=== PATIENT | female | born 1975 | race Caucasian/White ===

== ENCOUNTER 2019-11-13 00:25 | Emergency (ER) | payer OTHER, SELFPAY ==
[2019-11-13 00:28] VITALS: BP 120/87; PULSE 108; RESP 18; TEMP 37.2; O2SAT 100; BMI 22.5
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
[2019-11-13] MEDS: Diphth,Pertuss(Acell),Tet Vac 0.5 ML Vial IM (02:51)
[2019-11-13 03:10] VITALS: BP 118/76; PULSE 90; RESP 16; O2SAT 99
== END 2019-11-13 03:13 | disposition home or self-care (01) ==
PROVIDERS: Emergency Provider Emergency Medicine; PCP Nurse Practitioner Family
DX: S06.0X0A Concussion without loss of consciousness, initial encounter (principal); S01.81XA Laceration without foreign body of other part of head, initial encounter; F17.200 Nicotine dependence, unspecified, uncomplicated; Y08.89XA Assault by other specified means, initial encounter; Y93.89 Activity, other specified; Y92.89 Other specified places as the place of occurrence of the external cause; Y99.8 Other external cause status
CPT/HCPCS: 12013; 70450; 72125; 90471; 90715; 99283

== ENCOUNTER 2023-09-24 17:29 | Emergency (ER) | payer BC, SELFPAY ==
[2023-09-24 17:30] VITALS: BP 124/76; PULSE 81; RESP 18; TEMP 36.1; O2SAT 97; BMI 23.3
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
[2023-09-24] MEDS: HYDROcodone Bitartrate/Apap 5/325 Tablet PO (21:44)
[2023-09-24 21:46] VITALS: BP 124/64; PULSE 68; RESP 18; TEMP 37.1; O2SAT 98
== END 2023-09-24 21:49 | disposition home or self-care (01) ==
PROVIDERS: Emergency Provider Emergency Medicine; PCP Nurse Practitioner Family; Visit Provider Emergency Medicine
DX: S22.42XA Multiple fractures of ribs, left side, initial encounter for closed fracture (principal); F17.290 Nicotine dependence, other tobacco product, uncomplicated; W19.XXXA Unspecified fall, initial encounter
CPT/HCPCS: 71250; 74176; 99282